=== PATIENT | male | born 1955 | race Caucasian/White ===

== ENCOUNTER 2017-11-12 21:00 | Inpatient (IN) | payer OTHER, BC ==
[~2017-11-12] VITALS: Ht 182.9 cm; Wt 84.0 kg
[~2017-11-12 21:00] MED LIST: HYDROCODON-ACE1 EAC7 PO
[2017-11-12 23:52] LABS: HEMATOCRIT 45.7 % (38.0-50.0); MCH 30.9 PG (29.0-34.0); MCV 88.2 FL (86-99); PLATELET COUNT 176 K/uL (156-360); RBC DIS.WIDTH-CV 12.8 % (11.8-14.6); RBC DIS.WIDTH-SD 41.5 % (39-53); RED BLOOD COUNT 5.18 M/uL (4.00-5.50); WHITE BLOOD COUNT 12.6 K/uL (4.1-10.2)
[2017-11-13 00:02] LABS: ALBUMIN 4.6 g/dL (3.2-4.8)
[2017-11-13 00:03] LABS: CHLORIDE 97 mEq/L (99-109); SODIUM 131 mEq/L (136-147)
[2017-11-13 00:05] LABS: GLUCOSE 114 mg/dL (70-99); TOTAL PROTEIN 7.4 g/dL (6.4-8.3)
[2017-11-13 00:07] LABS: TOTAL BILIRUBIN 0.8 mg/dL (0.0-1.0)
[2017-11-13 00:08] LABS: ALKALINE PHOSPHATASE 75 IU/L (3-129)
[2017-11-13 00:09] LABS: CREATININE 0.8 mg/dL (0.6-1.3); GFR ESTIMATE (CALCULATED) > 59 mL/min/ (58.99-99999)
[2017-11-13 00:10] LABS: AST (GOT) 58 IU/L (2-34); UREA NITROGEN (BUN) 10 mg/dL (9-23)
[2017-11-13 00:11] LABS: ALT (GPT) 56 IU/L (3-49)
[2017-11-13 00:12] LABS: LIPASE 11 U/L (1.0-51.0)
[2017-11-13 00:15] LABS: TROP-I INTERPRETATION NEGATIVE; TROPONIN-I < 0.01 ng/mL (0.0-0.30)
[2017-11-13 04:13] VITALS: BP 156/70; BP 156/80
[2017-11-13 06:05] LABS: BASOPHIL (%) 0.3 % (0-1); EOSINOPHIL (%) 1.2 % (0-5); EOSINOPHIL COUNT 0.1 K/uL (0-0.3); HEMATOCRIT 43.2 % (38.0-50.0); HEMOGLOBIN 14.5 G/DL (12.5-16.6); IMMATURE GRANULOCYTE (%) 0.6 % (0.0-0.7); LYMPHOCYTE (%) 16.4 % (15-42); LYMPHOCYTE COUNT 1.5 K/uL (1.0-2.8); MCH 30.3 PG (29.0-34.0); MCHC 33.6 G/DL (30.0-36.0); MCV 90.4 FL (86-99); MONOCYTE (%) 9.5 % (3-12); MONOCYTE COUNT 0.9 K/uL (0-0.8); NEUTROPHIL COUNT 6.5 K/uL (1.8-6.4); PLATELET COUNT 166 K/uL (156-360); RBC DIS.WIDTH-CV 13.2 % (11.8-14.6); RBC DIS.WIDTH-SD 43.5 % (39-53); RED BLOOD COUNT 4.78 M/uL (4.00-5.50); WHITE BLOOD COUNT 9.1 K/uL (4.1-10.2)
[2017-11-13 06:37] LABS: CHLORIDE 100 MEQ/L (99-109); CREATININE 0.7 MG/DL (0.6-1.3); GFR ESTIMATE (CALCULATED) > 59 mL/min/ (58.99-99999); GLUCOSE 121 mg/dL (70-99); POTASSIUM 4.1 MEQ/L (3.7-5.4); SODIUM 135 MEQ/L (136-147); UREA NITROGEN (BUN) 9 mg/dL (9-23)
[2017-11-13 07:36] VITALS: BP 158/78
[2017-11-13 11:24] VITALS: BP 146/83
[2017-11-13 15:04] VITALS: BP 138/69
[2017-11-13 20:19] VITALS: BP 143/72
[2017-11-13 23:45] VITALS: BP 133/81
[2017-11-14 03:57] VITALS: BP 150/76
[2017-11-14 08:08] VITALS: BP 132/73
[2017-11-14 11:49] VITALS: BP 135/79
[2017-11-14] MEDS ORDERED: COLACE100 MG PO (12:36)
[2017-11-14] MEDS ORDERED: ROXICODONE5 MG PO (12:36)
[2017-11-14 17:09] VITALS: BP 139/79
[2017-11-14 18:58] VITALS: BP 129/73
[2017-11-14 22:40] VITALS: BP 131/77
[2017-11-15 04:12] VITALS: BP 148/81
[2017-11-15 07:30] VITALS: BP 140/80
== END 2017-11-15 10:44 | disposition home or self-care (01) | DRG 563 ==
LOC: EME 21:00 → 4EAST 11-13 03:01 → EDOF 11-13 03:01 → ENRESERV 11-13 03:06 → 4EAST 11-13 03:48
PROVIDERS: Physician Assistant; Surgery
DX: S42.002A Fracture of unspecified part of left clavicle, initial encounter for closed fracture (principal); S09.90XA Unspecified injury of head, initial encounter; S22.20XA Unspecified fracture of sternum, initial encounter for closed fracture; S42.023A Displaced fracture of shaft of unspecified clavicle, initial encounter for closed fracture; F17.210 Nicotine dependence, cigarettes, uncomplicated; V89.2XXA Person injured in unspecified motor-vehicle accident, traffic, initial encounter; Y92.410 Unspecified street and highway as the place of occurrence of the external cause; E04.1 Nontoxic single thyroid nodule; Z88.2 Allergy status to sulfonamides; R42 Dizziness and giddiness
CPT/HCPCS: 70450; 71045; 71046; 71260; 72125; 73000; 74177; 80048; 80053; 83690; 84484; 85025; 85027; 86850; 86900; 86901; 93005; 94799; 95819; 99281; 99285; J1170; J2270; J2405; J7030; J7120